=== PATIENT | male | born 1985 | race Two or more races ===

== ENCOUNTER 2017-08-09 21:57 | Emergency (ER) | payer BC ==
[~2017-08-09] VITALS: Ht 172.7 cm; Wt 78.0 kg
[2017-08-09 21:59] VITALS: Ht 172.7 cm; Wt 78.0 kg
[2017-08-09 22:45] LABS: BASOPHIL % 0.7 % (0-2); PLATELET COUNT 177 x10^3mcL (130-400); RED CELL DISTRIBUTION WIDTH 13.9 % (11.5-14.5)
[2017-08-09 22:55] LABS: CALCIUM 8.9 mg/dL (8.5-10.1); CARBON DIOXIDE 31.6 mmol/L (21-32); CHLORIDE SERUM 103 mmol/L (98-107); GFR1 > 60 mL/min; GLUCOSE SERUM 109 mg/dL (74-106); POTASSIUM SERUM 3.8 mmol/L (3.5-5.1); SODIUM SERUM 143 mmol/L (136-145)
[2017-08-09 23:00] LABS: ALBUMIN 4.3 g/dL (3.4-5.0); ALKALINE PHOSPHATASE 42 U/L (46-116); ALT/SGPT 24 U/L (16-63); AST/SGOT 13 U/L (15-37); BILIRUBIN TOTAL 1.3 mg/dL (0.20-1.00); LIPASE 203 IU/L (73-393); TOTAL PROTEIN, SERUM 8.1 g/dL (6.4-8.2)
[2017-08-10 00:26] VITALS: BP 103/68
[2017-08-10 02:25] LABS: microscopic required? NO
[2017-08-10 02:39] LABS: urine erythrocyte NEGATIVE (NEGATIVE)
== END 2017-08-10 00:43 | disposition left against medical advice (07) ==
LOC: ED 21:57
PROVIDERS: Emergency Medicine
DX: R07.89 Other chest pain (principal); R10.13 Epigastric pain
CPT/HCPCS: 36415